=== PATIENT | female | born 1995 | race Two or more races ===

== ENCOUNTER 2024-06-01 19:26 | Emergency (ER) | payer MEDICAID, OTHER ==
[~2024-06-01] VITALS: Ht 167.6 cm; Wt 125.0 kg
[2024-06-01 19:36] VITALS: TEMP 37.6; O2SAT 100
[2024-06-01 21:44] LABS: BASOPHILS % 0.6 % (0.0-2.0); HEMATOCRIT. 41.6 % (36.0-48.0); HEMOGLOBIN. 14.5 g/dL (12.0-16.0); LYMPHOCYTES % 21.8 % (20.0-50.0); MEAN CORPUSCULAR HGB CONC 34.8 g/dL (31.0-37.0); MEAN PLATELET VOLUME 8.3 fl (7.4-10.4); NEUTROPHILS % 70.6 % (40.0-76.0); PLATELET 285 x1000/uL (130-400); RED BLOOD CELL COUNT 4.52 mill/uL (4.2-5.4); WHITE BLOOD COUNT 13.3 x1000/uL (4.5-11.0)
[2024-06-01 21:53] LABS: CHLORIDE 107 mEq/L (98-107); POTASSIUM 4.7 mEq/L (3.5-5.1); PROTHROMBIN TIME 10.9 sec (9.6-11.0); SODIUM 143 mEq/L (136-145)
[2024-06-01 21:54] LABS: CALCIUM 9.5 mg/dL (8.7-10.4); CARBON DIOXIDE 28 mEq/L (21-32)
[2024-06-01 21:55] LABS: HCG SCREEN NEGATIVE
[2024-06-01 21:56] LABS: GLUCOSE URINE NEGATIVE (NEGATIVE); KETONES URINE NEGATIVE (NEGATIVE)
[2024-06-01 21:59] LABS: CREATININE 0.8 mg/dL (0.6-1.0); GLUCOSE 97 mg/dL (70-105); UREA NITROGEN BLOOD 11 mg/dL (9-23)
[2024-06-01 22:00] LABS: TROPONIN I HIGH SENSITIVITY < 4 ng/L (3.0-34)
[2024-06-01 22:03] LABS: CLARITY URINE CLEAR (CLEAR); COLOR URINE YELLOW (YELLOW); LEUKOCYTE ESTERASE URINE NEGATIVE (NEGATIVE); NITRITE URINE NEGATIVE (NEGATIVE); OCCULT BLOOD URINE NEGATIVE (NEGATIVE); PROTEIN URINE NEGATIVE (NEGATIVE); SPECIFIC GRAVITY URINE 1.013 (1.005-1.030); UROBILINOGEN URINE 0.2 E.U./dL (0.2-1.0)
[2024-06-01] MEDS: SODIUM CHLORIDE 0.9% 1,000 ML IV ONE (22:03)
[2024-06-01] MEDS: ONDANSETRON HCL 4MG/2ML INJ IV ONE (22:03)
[2024-06-01] MEDS: MORPHINE SULFATE 4 MG/ML INJ (FOR IV/IM USE) IV ONE (22:03)
[2024-06-01] MEDS: ACETAMINOPHEN 325MG TABLET PO ONE (22:14)
[2024-06-01] MEDS: CEFAZOLIN 1000MG PREMIX 50 ML IV ONE (23:04)
[2024-06-01] MEDS: TETANUS, DIPHTHERIA, PERTUSSIS VAC/PF 0.5ML (>10YR OLD) IM ONE (23:05)
[2024-06-02 00:55] VITALS: BP 118/82; PULSE 84; RESP 10; O2SAT 100
== END 2024-06-02 01:05 | disposition short-term general hospital (02) ==
LOC: ER 19:26
DX: S05.32XA Ocular laceration without prolapse or loss of intraocular tissue, left eye, initial encounter (principal); R55 Syncope and collapse; X58.XXXA Exposure to other specified factors, initial encounter; Y93.89 Activity, other specified; Y92.89 Other specified places as the place of occurrence of the external cause; Y99.8 Other external cause status
CPT/HCPCS: 80048; 81003; 84703; 85025; 85610; 84484; 36415; 70450; 70486; 90715; 93005; 90471; 96365; 96375; 99291; J0690; J2270; J7030; Z7610 ×3